=== PATIENT | male | born 1940 | race Caucasian/White ===

== ENCOUNTER → 2017-02-01 | Outpatient (CLI) | payer MEDICARE ==
--- NOTE | 2017-02-01 14:33 | RAD ---
Thyroid ultrasound 02/13/2017 Clinical history: Goiter. Technique: Real-time ultrasound examination of the thyroid gland was performed. Multiple images were obtained. Findings: Comparison study is dated 11/14/2013. The thyroid gland is enlarged. The right lobe of thyroid gland measures 5.5 x 1.7 x 1.6 cm in longitudinal, transverse and AP dimensions. The left lobe of thyroid gland measures 5.4 x 1.7 x 1.7 cm in size. The isthmus measures 4 mm in thickness. Several small rounded and oval-shaped anechoic and hypoechoic nodules are seen scattered throughout both lobes of the thyroid gland. These measure 2 mm to 6 mm in size. These findings are consistent with a multinodular goiter. No significant mass lesion is seen. Impression: Findings consistent with a multinodular goiter.
== END | disposition home or self-care (01) ==
LOC: US 10:44
PROVIDERS: ATTEND Physician Assistant
DX: E04.2 Nontoxic multinodular goiter (principal)
CPT/HCPCS: 76536

== ENCOUNTER 2017-05-03 20:04 | Inpatient (IN) | payer MEDICARE ==
[~2017-05-03] VITALS: Ht 177.8 cm; Wt 83.1 kg
[2017-05-03 20:35] VITALS: BP 149/69
[2017-05-03 23:14] VITALS: BP 103/46
[2017-05-03] MEDS: IV NORMAL SALINE 1,000ML 1,000 ML IV SCH (23:49)
[2017-05-04] MEDS ORDERED: METF10002 PO (01:06)
[2017-05-04] MEDS ORDERED: LISI40TA PO (01:06)
[2017-05-04] MEDS ORDERED: INSU100I13 SQ (01:06)
[2017-05-04] MEDS ORDERED: CARV12.52 PO (01:06)
[2017-05-04] MEDS ORDERED: Influenza vaccine per PROTOCOL. MC PRN (01:45)
[2017-05-04 06:17] VITALS: BP 116/55
[2017-05-04] MEDS: INSULIN DETEMIR 300 UNITS/3 ML INSULN.PEN. SQ SCH ×2 (09:00→20:36)
[2017-05-04] MEDS ORDERED: FLU VACC QS2017-18 (36MOS+)/PF 0.5 ML SYRINGE. VAX IM ONE (09:00)
[2017-05-04] MEDS: LISINOPRIL 10 MG TABLET PO SCH (10:14)
[2017-05-04] MEDS: CARVEDILOL 12.5 MG TABLET PO SCH ×2 (10:14→17:09)
[2017-05-04 10:59] VITALS: BP 123/68
[2017-05-04] MEDS: IV NORMAL SALINE 1,000ML 1,000 ML IV SCH (14:32)
[2017-05-04 14:55] VITALS: BP 130/67
[2017-05-04 19:19] VITALS: BP 131/66
[2017-05-04 23:00] VITALS: BP 132/61
--- NOTE | 2017-05-04 23:42 | PN ---
DATE: SUBJECTIVE: A 76-year-old gentleman with right lower quadrant pain came in, diverticulitis noted on a CAT scan in the descending colon. The patient is receiving IV antibiotic therapy. He is feeling a little better this morning. OBJECTIVE: VITAL SIGNS: Remain stable, still running a low grade temperature of 99.9, blood pressure 150/68, respiratory rate 20, pulse 60, afebrile. LUNGS: Diminished, but clear. CARDIOVASCULAR: Regular sinus rhythm. ABDOMEN: Soft, not as tender ____ right lower quadrant as it was yesterday, but improved. IMPRESSION: Right lower quadrant pain, diverticulitis of the ascending colon. PLAN: Continue to monitor accordingly, IV antibiotic therapy, and monitor his blood sugars as he is a type 2 diabetic, hopefully ready for discharge in the morning. VANESSA JOYCE MD DR: KENNEDY/heidi JOB#: [id number] / [id number]
[2017-05-05] MEDS: IV NORMAL SALINE 1,000ML 1,000 ML IV SCH (04:43)
[2017-05-05 05:15] VITALS: BP 127/62
[2017-05-05 06:21] LABS: BASO # 0.1 x10^3/uL (0.0-0.2); BASO % 1 % (0-3); EOS # 0.2 x10^3/uL (0.0-0.7); EOS % 3 % (0-3); HEMATOCRIT 34.2 % (39.0-53.0); HEMOGLOBIN 11.6 g/dL (13.0-17.5); LYMPH # 1.2 x10^3/uL (1.0-4.8); LYMPH % 18 % (24-48); MEAN CORPUSCULAR HEMOGLOBIN 31 pg (25-35); MEAN CORPUSCULAR HGB CONC 34 g/dL (31-37); MEAN CORPUSCULAR VOLUME 91 fL (79-100); MONO # 0.6 x10^3/uL (0.0-1.1); MONO % 9 % (0-9); NEUT # 4.4 x10^3uL (1.8-7.7); NEUT % 68 % (31-73); PLATELET COUNT 307 x10^3/uL (140-400); RED BLOOD COUNT 3.74 x10^6/uL (4.30-5.70); RED CELL DISTRIBUTION WIDTH 13.6 % (11.5-14.5); WHITE BLOOD COUNT 6.4 x10^3/uL (4.0-11.0)
[2017-05-05 06:30] LABS: CALCIUM 9.1 mg/dL (8.5-10.1); CREATININE 1.2 mg/dL (0.7-1.3); GFR 58.9; POTASSIUM 4.4 mmol/L (3.5-5.1)
[2017-05-05] MEDS: CARVEDILOL 12.5 MG TABLET PO SCH (08:22)
[2017-05-05] MEDS: LISINOPRIL 10 MG TABLET PO SCH (08:22)
[2017-05-05] MEDS: INSULIN DETEMIR 300 UNITS/3 ML INSULN.PEN. SQ SCH (08:27)
[2017-05-05] MEDS ORDERED: LEVO500T59 PO (09:16)
[2017-05-05] MEDS ORDERED: METR500T PO (09:16)
[2017-05-05] MEDS ORDERED: LISI10TA2 PO (09:16)
[2017-05-05 10:02] VITALS: BP 127/69
--- NOTE | 2017-05-05 12:00 | DS ---
DATE OF DISCHARGE: 05/05/2017 HOSPITAL COURSE: The patient is a 76-year-old gentleman who came in with right lower quadrant pain. The patient came in the office, he came in to the hospital with diverticulitis of the ascending colon. The patient made good progress on IV antibiotic therapy and was discharged home and he will be monitored as an outpatient. IMPRESSION: Diverticulitis of the ascending colon. DISCHARGE INSTRUCTIONS: He will be on a low-fiber diet for 2 weeks. Decreased activity. MEDICATIONS: See MRAD. PLAN: As above. VANESSA JOYCE MD DR: KENNEDY/heidi JOB#: [id number] / [id number]
== END 2017-05-05 10:30 | disposition home or self-care (01) | DRG 392 ==
LOC: 1 SOUTH 20:20
PROVIDERS: ADMIT Family Medicine; ATTEND Family Medicine
DX: K57.32 Diverticulitis of large intestine without perforation or abscess without bleeding (principal); I42.9 Cardiomyopathy, unspecified; E11.9 Type 2 diabetes mellitus without complications; I25.10 Atherosclerotic heart disease of native coronary artery without angina pectoris; I25.2 Old myocardial infarction; I10 Essential (primary) hypertension; E78.5 Hyperlipidemia, unspecified; Z95.810 Presence of automatic (implantable) cardiac defibrillator; Z90.49 Acquired absence of other specified parts of digestive tract; Z80.1 Family history of malignant neoplasm of trachea, bronchus and lung; Z87.891 Personal history of nicotine dependence; E03.9 Hypothyroidism, unspecified
CPT/HCPCS: 36415; 74176; 80048; 82947; 84443; 85025; 90686; J1815; J1956; J3490; J7030

== ENCOUNTER → 2017-05-03 | Outpatient (CLI) | payer MEDICARE ==
[~2017-05-03] MED LIST: CARV12.52 PO; INSU100I13 SQ; LEVO500T59 PO; LISI10TA2 PO; LISI40TA PO; METF10002 PO; METR500T PO
[2017-05-03 18:18] LABS: BASO % 0 % (0-3); EOS # 0.2 x10^3/uL (0.0-0.7); EOS % 2 % (0-3); HEMATOCRIT 37.2 % (39.0-53.0); HEMOGLOBIN 12.4 g/dL (13.0-17.5); LYMPH # 2.1 x10^3/uL (1.0-4.8); LYMPH % 19 % (24-48); MEAN CORPUSCULAR HEMOGLOBIN 31 pg (25-35); MEAN CORPUSCULAR HGB CONC 34 g/dL (31-37); MEAN CORPUSCULAR VOLUME 91 fL (79-100); MONO # 1.1 x10^3/uL (0.0-1.1); MONO % 10 % (0-9); NEUT # 7.8 x10^3uL (1.8-7.7); NEUT % 70 % (31-73); PLATELET COUNT 309 x10^3/uL (140-400); RED BLOOD COUNT 4.08 x10^6/uL (4.30-5.70); RED CELL DISTRIBUTION WIDTH 13.9 % (11.5-14.5); WHITE BLOOD COUNT 11.2 x10^3/uL (4.0-11.0)
[2017-05-03 18:21] LABS: CALCIUM 9.3 mg/dL (8.5-10.1); CREATININE 1.5 mg/dL (0.7-1.3); GFR 45.5
--- NOTE | 2017-05-03 19:21 | RAD ---
CT scan of the abdomen and pelvis without contrast 05/03/2017 CLINICAL HISTORY: Right lower quadrant abdominal pain and fatigue for 2 days. TECHNIQUE: Unenhanced, contiguous, 3 mm axial sections were obtained through the abdomen and pelvis. One or more of the following individualized dose reduction techniques were utilized for this study: 1. Automated exposure control. 2. Adjustment of the mA and/or kV according to patient size. 3. Use of iterative reconstruction technique. FINDINGS: No previous imaging studies are available for comparison. Images through the lung bases demonstrate minimal dependent subsegmental atelectasis bilaterally. The liver, spleen, pancreas, adrenal glands and left kidney are within normal limits. A 2.6 cm rounded low-attenuation lesion is seen involving the midpole of the right kidney. This likely represents a cyst. The gallbladder is slightly contracted. Moderate atherosclerotic calcification of the abdominal aorta and its branches is seen. The abdominal aorta tapers normally. There is a small left paracentral ventral hernia near the umbilicus which contains a loop of nondilated small intestine. This measures 2.5 cm in greatest diameter. Multiple diverticula are seen throughout the colon. Wall thickening is seen involving the ascending colon within its proximal/midportion. Increased density is seen within the adjacent fat. These findings are consistent most likely with diverticulitis. No abnormal fluid collection is seen to suggest evidence of an abscess. The cecum extends into the pelvis. The appendix is not visualized. No inflammatory changes are seen surrounding the cecum. Images through the pelvis are degraded by beam hardening artifact related to the patient's bilateral TONG. Calcifications are seen within the pelvis consistent with phleboliths. No free fluid or abnormal fluid collection is seen. Degenerative changes are seen involving lower thoracic and throughout the lumbar spine. IMPRESSION: Findings are seen consistent most likely with diverticulitis involving a portion of the ascending colon as outlined above. No abscess is seen. Electronically signed by: Obie Carson MD (05/03/2017 7:17 PM) [facility]
== END | disposition home or self-care (01) ==
LOC: LAB 17:45
PROVIDERS: ATTEND Family Medicine
DX: K57.30 Diverticulosis of large intestine without perforation or abscess without bleeding (principal); K42.9 Umbilical hernia without obstruction or gangrene; I70.0 Atherosclerosis of aorta; M47.896 Other spondylosis, lumbar region; M47.894 Other spondylosis, thoracic region; J98.11 Atelectasis; M25.80 Other specified joint disorders, unspecified joint; F17.200 Nicotine dependence, unspecified, uncomplicated; E11.9 Type 2 diabetes mellitus without complications; E78.5 Hyperlipidemia, unspecified; E03.9 Hypothyroidism, unspecified; Z90.49 Acquired absence of other specified parts of digestive tract
CPT/HCPCS: 36415; 74176; 80048; 84443; 85025

== ENCOUNTER → 2017-07-21 | Outpatient (CLI) | payer MEDICARE ==
--- NOTE | 2017-07-21 16:02 | RAD ---
Right hip, 3 views, 07/21/2017: History: Hip pain A right total hip prosthesis is in place in satisfactory position. No fracture or dislocation is identified. Several nonspecific periarticular calcifications are present. IMPRESSION: 1. A right total hip prosthesis is in place. 2. No acute abnormality is detected.
== END | disposition home or self-care (01) ==
LOC: DXRAD 14:44
PROVIDERS: ATTEND Nurse Practitioner Adult Health
DX: M25.551 Pain in right hip (principal); Z96.641 Presence of right artificial hip joint
CPT/HCPCS: 73502

== ENCOUNTER → 2017-08-02 | Outpatient (CLI) | payer MEDICARE ==
--- NOTE | 2017-08-02 10:31 | RAD ---
Examination: CT right hip without contrast History: History of right hip pain, hard tissue behind the prosthesis Comparison: None available Technique: Axial CT images of the right hip was performed without contrast. Coronal sagittal reformats are performed. PQRS Compliance Statement: One or more of the following individualized dose reduction techniques were utilized for this examination: 1. Automated exposure control 2. Adjustment of the mA and/or kV according to patient size 3. Use of iterative reconstruction technique Findings: Right total hip arthroplasty changes in normal alignment. There is no obvious acute fracture or dislocation identified. There is minimal heterotopic ossification identified posterior to the right proximal femur. Streak artifact limits evaluation. No obvious mass or lesion visualized about the right hip region. Impression: 1. No acute osseous findings. Right total hip arthroplasty in normal alignment. If pain persists, MRI may be useful for further evaluation.
== END | disposition home or self-care (01) ==
LOC: CT 09:37
PROVIDERS: ATTEND Family Medicine
DX: M79.89 Other specified soft tissue disorders (principal); Z96.641 Presence of right artificial hip joint; Z87.891 Personal history of nicotine dependence
CPT/HCPCS: 73700

== ENCOUNTER → 2021-02-18 | Outpatient (CLI) | payer MEDICARE ==
[~2021-02-18] MED LIST changes: -CARV12.52 PO; +CARV12.547 PO; +IOHEXOL 240 MG/ML 50ML VIAL. ONE; +IOHEXOL 240 MG/ML 50ML VIAL. PO ONE; +IOHEXOL 300 MG/ML 75 ML VIAL. IV ONE; +LISI10TA16 PO; -LISI10TA2 PO; -LISI40TA PO; +LISI40TA6 PO; -METF10002 PO; +METF10007 PO
[2021-02-18 09:36] LABS: CREATININE 1.2 mg/dL (0.7-1.3); GFR 58.3
--- NOTE | 2021-02-18 11:19 | RAD ---
EXAMINATION: CT abdomen and pelvis with IV contrast. INDICATION:80 years, Male, abdominal pain and diarrhea. TECHNIQUE: Axial CT images of the abdomen and pelvis were obtained. Coronal and sagittal reformatted performed. COMPARISON: 05/03/2017. Exposure: One or more of the following individualized dose reduction techniques were utilized for thi s examination: 1. Automated exposure control 2. Adjustment of the mA and/or kV according to patient size 3. Use of iterative reconstruction technique. FINDINGS: LOWER CHEST: Unremarkable ABDOMEN/PELVIS: Normal size and morphology of the liver with homogeneous enhancement. No suspicious focal hepatic les ion. Unremarkable gallbladder and biliary ducts. Calcified granuloma in the spleen. Mildly atrophic p ancreatic parenchyma. Two ill-defined cystic structures in the pancreatic head, the largest measures 1.7 cm (series 2 image 26). No pancreatic ductal dilatation. No adrenal nodule. No hydronephrosis in either kidney. No nephrolithiasis. Simple appearing 4.3 cm c yst in the the interpolar right kidney. Additional, simple appearing cyst in the lower pole right kid eligio measures 1.3 cm. Nonspecific bilateral perinephric fat stranding. Subcentimeter hypodensity along the lateral cortex of the right kidney, too small to characterize. No bowel obstruction or wall thickening. Diffuse colonic diverticulosis without diverticulitis. Appen janel is not seen with certainty. Moderate to severe aortoiliac atherosclerotic calcifications without significant narrowing or dilatation. Mesenteric arteries and portal vein are patent. However, high-gr ousmane stenosis at the origin of SMA secondary to atherosclerotic calcifications. No pneumoperitoneum or ascites. No lymphadenopathy in the abdomen or pelvis by size criteria. Pelvic structures including urinary bladder and prostate are totally obscured by streaking artifact from beth ateral hip arthroplasties. MUSCULOSKELETAL: Postsurgical changes along the anterior abdominal wall. No acute osseous process. Multilevel degenera tive changes in the spine. Bilateral hip arthroplasties. IMPRESSION: 1. No acute intra-abdominal findings. 2. Diffuse colonic diverticulosis without acute diverticulitis. 3. Two ill-defined cystic lesions in the pancreatic head measuring up to 1.7 cm. Differential includ es pseudocysts versus side branch intraductal papillary mucinous neoplasms. Recommend MRI/MRCP abdome n for further evaluation. 4. 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 Electronically signed by: Mikael Lawrence MD (02/18/2021 11:17 AM) [facility]
== END ==
LOC: CT 09:02
PROVIDERS: ATTEND Internal Medicine Gastroenterology
DX: K57.30 Diverticulosis of large intestine without perforation or abscess without bleeding (principal); K86.89 Other specified diseases of pancreas; D73.89 Other diseases of spleen; Z96.643 Presence of artificial hip joint, bilateral
CPT/HCPCS: 36415; 74177; 82565; 84520; Q9966; Q9967

== ENCOUNTER → 2021-03-05 | Outpatient (CLI) | payer MEDICARE ==
[~2021-03-05] MED LIST changes: -IOHEXOL 240 MG/ML 50ML VIAL. ONE; -IOHEXOL 240 MG/ML 50ML VIAL. PO ONE; -IOHEXOL 300 MG/ML 75 ML VIAL. IV ONE
== END ==
LOC: LAB 09:54
PROVIDERS: ATTEND Internal Medicine Gastroenterology
DX: R19.7 Diarrhea, unspecified (principal); K86.2 Cyst of pancreas
CPT/HCPCS: 36415; 86301